=== PATIENT | male | born 1990 | race Caucasian/White ===

== ENCOUNTER 2023-06-03 13:06 | Outpatient (AMB) | payer OTHER, SELFPAY ==
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
[2023-06-03 13:28] VITALS: BP 122/78; PULSE 68; O2SAT 98
== END 2023-06-03 13:45 | disposition home or self-care (01) ==
PROVIDERS: Visit Provider Internal Medicine
DX: M54.50 Low back pain, unspecified (principal)
CPT/HCPCS: 99213